=== PATIENT | female | born 2000 | race Caucasian/White ===

== ENCOUNTER 2022-08-17 14:05 | Emergency (ER) | payer OTHER, BC | END 2022-08-17 16:50 | disposition home or self-care (01) | LOC: BURERS 14:05 | DX: S29.011A Strain of muscle and tendon of front wall of thorax, initial encounter (principal); S00.81XA Abrasion of other part of head, initial encounter; E03.9 Hypothyroidism, unspecified; V89.2XXA Person injured in unspecified motor-vehicle accident, traffic, initial encounter | CPT/HCPCS: 71046; 93005 ==